=== PATIENT | female | born 1945 | race Caucasian/White ===

== ENCOUNTER 2022-01-31 10:30 | Outpatient (RCR) | payer MEDICARE, SELFPAY ==
[2022-01-24 10:24] VITALS: BP 136/66; PULSE 78; RESP 18; TEMP 35.6; BMI 45.2
--- NOTE | 2022-01-24 13:02 | PCM.WC.HP ---
History of Present Illness Date of Service: 01/24/22 Chief Complaint: Left lower leg cellulitis and staph infection History of Wound: 77-year-old white female grossly obese was working in her yard over the summer and developed she thought poison andree that never went away. Actually its been infection and cellulitis. Has been on antibiotic therapy x2 and is currently on Bactrim from her family doctor through cultures. She has a crusty yellow wet looking cellulitis on the left lower leg almost circumferential. Bilateral lower legs are extremely edematous. Patient does not wear compression stockings. Patient denies fever chills nausea vomiting or diarrhea [facility] Home Medications amlodipine 10 mg tablet 10 mg PO DAILY 01/24/22 [History Last Taken Unknown] ascorbic acid (vitamin C) 25 mg tablet mg PO 01/24/22 [History Last Taken Unknown] atorvastatin 40 mg tablet 40 mg PO QHS 01/24/22 [History Last Taken Unknown] cholecalciferol (vitamin D3) 10 mcg (400 unit) tablet (Vitamin D3) 10 mcg PO DAILY 01/24/22 [History Last Taken Unknown] isosorbide mononitrate 60 mg tablet,extended release 24 hr 60 mg PO DAILY 01/24/22 [History Last Taken Unknown] latanoprostene bunod 0.024 % eye drops (Vyzulta) drp 01/24/22 [History Last Taken Unknown] losartan 100 mg-hydrochlorothiazide 25 mg tablet 1 tab PO DAILY 01/24/22 [History Last Taken Unknown] metoprolol succinate 100 mg capsule sprinkle, ext. release 24 hr 100 mg PO DAILY 01/24/22 [History Last Taken Unknown] phenytoin 100 mg/4 mL oral syringe (FOR ORAL USE ONLY) 100 mg PO TID 01/24/22 [History Last Taken Unknown] potassium chloride 20 mEq tablet,extended release(part/cryst) 20 meq PO BID 01/24/22 [History Last Taken Unknown] Allergy/AdvReac Type Severity Reaction Status Date / Time lincomycin Allergy Unknown Verified 03/14/16 08:48 lisinopril Allergy Unknown Verified 03/14/16 08:48 vancomycin Allergy Unknown Verified 03/14/16 08:48 ROS Constitutional Constitutional: Reports systems reviewed and no addt'l complaints, except as documented Eyes Eyes: Reports systems reviewed and no addt'l complaints, except as documented ENT HEENT: Reports systems reviewed and no addt'l complaints, except as documented Cardiovascular Cardiovascular: Reports systems reviewed and no addt'l complaints, except as documented Respiratory/Chest Respiratory/Chest: Reports systems reviewed and no addt'l complaints, except as documented Gastrointestinal Gastrointestinal: Reports systems reviewed and no addt'l complaints, except as documented Musculoskeletal Musculoskeletal: Reports systems reviewed and no addt'l complaints, except as documented Integumentary Integumentary: Reports rash, skin pain, skin ulcer, skin swelling and wounds Neurologic Neurologic: Reports systems reviewed and no addt'l complaints, except as documented Psychiatric Psychiatric: Reports systems reviewed and no addt'l complaints, except as documented Endocrine Endocrinology: Reports systems reviewed and no addt'l complaints, except as documented Hematologic/Lymphatic Hematologic/Lymphatic: Reports systems reviewed and no addt'l complaints, except as documented Allergic/Immunologic Allergic/Immunologic: Reports systems reviewed and no addt'l complaints, except as documented Vital Signs Vital Signs Vital Signs: 01/24/22 10:24 Temperature 96.0 F L Temperature Source Temporal Pulse Rate 78 Respiratory Rate 18 Blood Pressure 136/66 H Blood Pressure Mean 89 Blood Pressure Source Monitor Blood Pressure Position Semi-Fowlers Blood Pressure Location Left Arm Weight Weight: 272 lb Body Mass Index (BMI) 45.2 Physical Exam Const oriented x3 General Appearance: cooperative Exam Limitations: no limitations Resp normal respiratory effort Effort and Inspection: able to speak in complete sentences Auscultation: clear to auscultation bilaterally Cardio regular rate and regular rhythm Palpation: normal PMI Rate: regular rate Rhythm: regular rhythm external exam normal Extremity normal to inspection General Extremity: normal exam except as noted Skin no rashes or lesions noted General Skin Exam: venous stasis, dermatitis and other Cellulitis with staph aureus infection or scalded skin syndrome Neuro oriented x3 Psych Appearance: grossly normal Speech: normal speech Thought Content: normal thought content Judgement: judgement good Debridement Note Debridement Note Wound debrided: Left lower leg staph infection and cellulitis Type of Debridement: Excisional debridement Anesthesia Used: 5% Lidocaine Gel Depth: Down to and including healthy tissue Percentage of wound debrided: 100 Instrument Used: 7mm curette Tissue Removed: Slough and fibrin Severity: Limited To Skin Breakdown Amount of bleeding with debridement: Mild Bleeding Controlled with: Compression and gauze Patient tolerated procedure: Patient tolerated procedure well Post-Debridement Measurements and Additional Note: Post-Debridement Measurements/Treatment - Nurse 1 - General Ulcer Assessment Start: 01/24/22 09:19 Freq: Status: Active Protocol: DAVY Activity Type Activity Date Activity User E-sign Co-sign Detail Recorded Client Recorded Date Recorded By Document 01/24/22 10:24 INGA [id number] 01/24/22 10:41 JF Edit Result 01/24/22 10:24 JF (1) [id number] 01/24/22 10:49 JF (1) Right - Posterior Tibial Palpable => Yes - Posterior Tibial Doppler => Multiphasic - Dorsalis Pedis Palpable => Yes - Dorsalis Pedis Doppler => Multiphasic Left - Posterior Tibial Palpable => Yes - Posterior Tibial Doppler => Multiphasic - Dorsalis Pedis Palpable => Yes - Dorsalis Pedis Doppler => Multiphasic 01/24/22 10:24 - Today's Visit Information Type of service Initial Visit Arrival Mode Ambulatory, Walker Patient Identification Verified (Name & Yes ) Patient Requires Transmission-Based No Precautions Height and Weight Height 5 ft 5 in Weight 272 lb Weight in Pounds 272.0 lbs Body Mass Index (BMI) 45.2 BMI Classification Obese BSA - Cristian 2.25 Vital Signs Temperature (97.8 F-99.1 F) 96.0 F L Temperature Source Temporal Pulse Rate (60-100) 78 Pulse Location Monitor Respiratory Rate (12-18) 18 Respiratory rate source Observation Blood Pressure (90/60-120/80) 136/66 H Blood Pressure Mean 89 Source Monitor Position Semi-Fowlers Blood Pressure Location Left Arm History Since Last Visit- (Skip if this is Patient's initial visit) Left Footwear Regular Shoe Right Footwear Regular Shoe Pain Scale: 0-10 Numeric Is Patient Pain Free? Yes Lower Extremity Assessment/ Foot Assessment/ Toe Nail Assessment Right -Posterior Tibial Palpable Yes -Posterior Tibial Doppler Multiphasic -Dorsalis Pedis Palpable Yes -Dorsalis Pedis Doppler Multiphasic Left -Posterior Tibial Palpable Yes -Posterior Tibial Doppler Multiphasic -Dorsalis Pedis Palpable Yes -Dorsalis Pedis Doppler Multiphasic Teaching Assessment Preferences Verbal,Written, Demonstration Barriers to Learning None Readiness To Learn Good Willingness to Engage in Self Management Med Activies Readiness to Engage in Self Management Med Activities Anxiety Level Calm Cooperation Cooperative Perception Coherent Interest in Health Problem Asks Questions Education Importance Acknowledges Need Does Patient Smoke tobacco or other No substances Is Patient Diabetic No Functional Assessment Recent Decline in Ability to Perform Ambulation Culture/Latter-Day/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 to contact place of anglican No Teaching: Wound Center [facility] Orientation/ Contacting Physician -Person Taught Patient -Teaching Method Discussion, Demonstration -Response to teaching Return demonstration, Reinforcement needed - Nurse 1 - General Ulcer Measurement Start: 01/24/22 09:19 Freq: Status: Active Protocol: Activity Type Activity Date Activity User E-sign Co-sign Detail Recorded Client Recorded Date Recorded By Document 01/24/22 10:24 [id number] 01/24/22 10:41 01/24/22 10:24 Wound Center Nurse 1 Lower Limb Edema Present Yes Right Calf (cm) 50.6 Right Ankle (cm) 28.5 Left Calf (cm) 48.7 Left Ankle (cm) 32.5 - Nurse 2 - General Ulcer CM Notes Start: 01/24/22 09:19 Freq: Status: Active Protocol: Activity Type Activity Date Activity User E-sign Co-sign Detail Recorded Client Recorded Date Recorded By Document 01/24/22 11:00 [id number] 01/24/22 11:06 01/24/22 11:00 Wound Center Nurse 2 #1 left LE -Time 11:01 -Correct Patient Yes -Correct Side, Site, Position Yes -Correct Procedure Yes -Procedure Performed Yes -Type of Procedure Incision & Drainage -Clinical Debridement Subcutaneous -Tissue Removed Subcutaneous -Post Debridement (cm) - Length 19.0 -Post Debridement (cm) - Width 46.0 -Post Debridement (cm) - Depth 0.1 -Total Square (Post) (cm) 874.00 -Area of Debridement (cm) - Length 19.0 -Area of Debridement (cm) - Width 46.0 -Total Square (Area) (cm) 874.00 -Tunneling No -Undermining/Tunneling No -Circular Undermining No -Wound/Ulcer Outcome Not Healed -Ulcer Cleansing Rinsed/ Irrigated with Saline -Foul Odor after Cleansing No -Bioengineered Tissue No -Bleeding Controlled with Pressure -Treatment Response Procedure Tolerated Well -Offloading No -Debridement - Subq, 1st 20sq cm Yes Pain Scale: 0-10 Numeric Is Patient Pain Free? Yes - Nurse 3 - General Ulcer D/C NN Start: 01/24/22 09:19 Freq: Status: Active Protocol: Activity Type Activity Date Activity User E-sign Co-sign Detail Recorded Client Recorded Date Recorded By Document 01/24/22 11:22 [facility] [id number] 01/24/22 11:23 [facility] 01/24/22 11:22 Wound Care Nurse 3 #1 left LE -Ulcer Cleansing Soap and Water -Foul Odor after Cleansing No -Primary Dressing Applied NonAdherent Contact Layer, Optilok 8x12 -Other Dressing xeroform, -Primary Dressing Covered/Secured with Secured with Tape -Other Covering kerlix -Optilok 8x12 4 Left -Tubular Bandage Double Layer -Size of Tubigrip Used Size F -Size F ($) 2 -Other sent extra Treatment Response Procedure Tolerated Well Pain Scale: 0-10 Numeric Is Patient Pain Free? 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
[2022-01-31 10:47] VITALS: BP 136/77; PULSE 69; RESP 18; TEMP 35.7; BMI 45.2
--- NOTE | 2022-01-31 12:11 | PN.PCM_ITS ---
History of Present Illness Date of Service: 01/31/22 Chief Complaint: Left lower leg cellulitis and staph infection History of Wound: 77-year-old white female grossly obese was working in her yard over the summer and developed she thought poison andree that never went away. Actually its been infection and cellulitis. Has been on antibiotic therapy x2 and is currently on Bactrim from her family doctor through cultures. She has a crusty yellow wet looking cellulitis on the left lower leg almost circu mferential. Bilateral lower legs are extremely edematous. Patient does not wear compression stockings. Patient denies fever chills nausea vomiting or diarrhea Progress of Wound: Patient states has 1 more day of antibiotic therapy and wonders if she needs another round. Cultures will be obtained today to see if there is any change. We are seeing's changes in the skin and it is healing the area of concern is smaller. More painful in the area just above her heel. Dried yellow flaky skin debrided off. No bleeding noted no sign of any more infection noted Subjective Subjective Patient seems to be satisfied so far with care she feels its improved a lot Objective Data Objective Data As stated above the area is still large but is getting smaller and less erythematous is losing that shininess for Pseudomonas Vital Signs: Vital Signs Temp Pulse Resp BP 96.3 F L 69 18 136/77 H 01/31/22 10:47 01/31/22 10:47 01/31/22 10:47 01/31/22 10:47 Weight: 272 lb Body Mass Index (BMI) 45.2 Lab / Micro Data Attestation: I reviewed the patient's lab results. Physical Exam Const oriented x3 General Appearance: cooperative Exam Limitations: no limitations Resp normal respiratory effort Effort and Inspection: able to speak in complete sentences Auscultation: clear to auscultation bilaterally Cardio regular rate and regular rhythm Palpation: normal PMI Rate: regular rate Rhythm: regular rhythm external exam normal Extremity normal to inspection General Extremity: normal exam except as noted Skin no rashes or lesions noted General Skin Exam: venous stasis, dermatitis and other Cellulitis with staph aureus infection or scalded skin syndrome Neuro oriented x3 Psych Appearance: grossly normal Speech: normal speech Thought Content: normal thought content Judgement: judgement good Debridement Note Debridement Note Wound debrided: Cluster left lower leg cellulitis that turned to staph infection Laterality: Left Type of Debridement: Excisional debridement Anesthesia Used: 5% Lidocaine Gel Depth: Down to and including healthy tissue Percentage of wound debrided: 100 Instrument Used: 7mm curette Tissue Removed: Devitalized tissue and fibrin Severity: Limited To Skin Breakdown Amount of bleeding with debridement: Mild Bleeding Controlled with: Compression and gauze Patient tolerated procedure: Patient tolerated procedure well Post-Debridement Measurements and Additional Note: Post-Debridement Measurements/Treatment - Nurse 1 - General Ulcer Assessment Start: 01/24/22 09:19 Freq: Status: Active Protocol: DAVY Activity Type Activity Date Activity User E-sign Co-sign Detail Recorded Client Recorded Date Recorded By Document 01/24/22 10:24 [id number] 01/24/22 10:41 Edit Result 01/24/22 10:24 JF (1) [id number] 01/24/22 10:49 JF Document 01/31/22 10:47 RB [id number] 01/31/22 10:54 RB (1) Right - Posterior Tibial Palpable => Yes - Posterior Tibial Doppler => Multiphasic - Dorsalis Pedis Palpable => Yes - Dorsalis Pedis Doppler => Multiphasic Left - Posterior Tibial Palpable => Yes - Posterior Tibial Doppler => Multiphasic - Dorsalis Pedis Palpable => Yes - Dorsalis Pedis Doppler => Multiphasic 01/24/22 01/31/22 10:24 10:47 - Today's Visit Information Type of service Initial Visit Follow-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 ) Arrival Mode Ambulatory, Wheelchair Walker Transfer Assistance Manual Patient Identification Verified (Name & Yes Yes ) Patient Requires Transmission-Based No No Precautions Height and Weight Height 5 ft 5 in Weight 272 lb Weight in Pounds 272.0 lbs Body Mass Index (BMI) 45.2 45.2 BMI Classification Obese Obese BSA - Cristian 2.25 Vital Signs Temperature (97.8 F-99.1 F) 96.0 F L 96.3 F L Temperature Source Temporal Temporal Pulse Rate (60-100) 78 69 Pulse Location Monitor Monitor Respiratory Rate (12-18) 18 18 Respiratory rate source Observation Observation Blood Pressure (90/60-120/80) 136/66 H 136/77 H Blood Pressure Mean (mm Hg) 89 96 Source Monitor Monitor Position Semi-Fowlers Semi-Fowlers Blood Pressure Location Left Arm Left Arm History Since Last Visit- (Skip if this is Patient's initial visit) Have you changed medications since your No last visit? Any new allergies or adverse reactions No Had a fall/change in ADL's that may No increase risk of falls Signs or symptoms of abuse and/or No neglect since last visit Have you been in the hospital since your No last visit? Has dressing in place as prescribed Yes Has compression in place as prescribed Yes Has offloadiing in place as prescribed No Experienced any changes in pain level or No management Left Footwear Regular Shoe Regular Shoe Right Footwear Regular Shoe Regular Shoe Pain Scale: 0-10 Numeric Is Patient Pain Free? Yes Yes Lower Extremity Assessment/ Foot Assessment/ Toe Nail Assessment Right -Posterior Tibial Palpable Yes -Posterior Tibial Doppler Multiphasic -Dorsalis Pedis Palpable Yes -Dorsalis Pedis Doppler Multiphasic Left -Posterior Tibial Palpable Yes -Posterior Tibial Doppler Multiphasic -Dorsalis Pedis Palpable Yes -Dorsalis Pedis Doppler Multiphasic Teaching Assessment Preferences Verbal,Written, Demonstration Barriers to Learning None Readiness To Learn Good Willingness to Engage in Self Management Med Activies Readiness to Engage in Self Management Med Activities Anxiety Level Calm Cooperation Cooperative Perception Coherent Interest in Health Problem Asks Questions Education Importance Acknowledges Need Does Patient Smoke tobacco or other No substances Is Patient Diabetic No Functional Assessment Recent Decline in Ability to Perform Ambulation Culture/Latter-Day/Medical Billing Clerk Cultural/Latter-Day Needs that may affect No Treatment Plan Would you allow our hospital police patrol lieutenant to No meet you for the purpose of spiritual/ emotional support? Medical Billing Clerk to contact place of catholic No Teaching: Wound Center [facility] Orientation/ Contacting Physician -Person Taught Patient -Teaching Method Discussion, Demonstration -Response to teaching Return demonstration, Reinforcement needed - Nurse 1 - General Ulcer Measurement Start: 01/24/22 09:19 Freq: Status: Active Protocol: Activity Type Activity Date Activity User E-sign Co-sign Detail Recorded Client Recorded Date Recorded By Document 01/24/22 10:24 INGA [id number] 01/24/22 10:41 JF Document 01/31/22 10:47 RB [id number] 01/31/22 10:54 RB 01/24/22 01/31/22 10:24 10:47 Wound Center Nurse 1 #1 left LE -Combined with other wound No -Current Size (cm) - Length 0.1 -Current Size (cm) - Width 0.1 -Current Size (cm) - Depth 0.1 -Total Square Cm 0.01 -Date of Last Picture (Recall this 01/31/22 field) -Photo Taken Yes -Tunneling No -Undermining/Tunneling No -Circular Undermining No -Change in Wound Grade/Stage No -Exudate Amt Medium -Exudate Type Serosanguineous -Wound Margin Distinct, Outline Attached -Granulation Amt None Present (0 %) -Granulation Quality N/A -Slough/Fibrin Yes -Necrosis Amt Small (1-33%) -Necrotic Tissue Type Adherent Slough -Structure Exposed N/A -Texture (Jessica-wound Skin Appearance) Assessed, Excoriation -Moisture (Jessica-wound Skin Appearance) Assessed, Maceration -Color (Jessica-wound Skin Appearance) No Abnormality, Assessed -Temperature (Jessica-wound Skin No Abnormality Appearance) (Pt Warm) -Tenderness on Palpation (Jessica-wound No Skin Appearance) -Ulcer Cleansing Soap and Water -Foul Odor after Cleansing No -Anesthetic Used 5% Lidocaine Gel Lower Limb Edema Present Yes Right Calf (cm) 50.6 Right Ankle (cm) 28.5 Left Calf (cm) 48.7 49.5 Left Ankle (cm) 32.5 32.6 WC - Nurse 2 - General Ulcer CM Notes Start: 01/24/22 09:19 Freq: Status: Active Protocol: Activity Type Activity Date Activity User E-sign Co-sign Detail Recorded Client Recorded Date Recorded By Document 01/24/22 11:00 MW [id number] 01/24/22 11:06 MW Edit Result 01/24/22 11:00 MW (1) [id number] 01/26/22 06:58 PL Document 01/31/22 11:05 MW [id number] 01/31/22 11:14 MW (1) #1 left LE - Debridement, SubQ, ea addt'l 20sq cm => 43 or part thereof 01/24/22 01/31/22 11:00 11:05 Wound Center Nurse 2 #1 left LE -Time 11:01 11:10 -Correct Patient Yes Yes -Correct Side, Site, Position Yes Yes -Correct Procedure Yes Yes -Procedure Performed Yes Yes -Type of Procedure Incision & Debridement Drainage -Clinical Debridement Subcutaneous Subcutaneous -Tissue Removed Subcutaneous Subcutaneous -Post Debridement (cm) - Length 19.0 6.0 -Post Debridement (cm) - Width 46.0 13.0 -Post Debridement (cm) - Depth 0.1 0.1 -Total Square (Post) (cm) 874.00 78.00 -Area of Debridement (cm) - Length 19.0 6.0 -Area of Debridement (cm) - Width 46.0 13.0 -Total Square (Area) (cm) 874.00 78.00 -Tunneling No No -Undermining/Tunneling No No -Circular Undermining No No -Wound/Ulcer Outcome Not Healed Not Healed -Ulcer Cleansing Rinsed/ Rinsed/ Irrigated with Irrigated with Saline Saline -Foul Odor after Cleansing No No -Bioengineered Tissue No No -Bleeding Controlled with Pressure Pressure -Treatment Response Procedure Procedure Tolerated Well Tolerated Well -Offloading No No -Debridement - Subq, 1st 20sq cm Yes Yes -Debridement, SubQ, ea addt'l 20sq cm 43 3 or part thereof Pain Scale: 0-10 Numeric Is Patient Pain Free? Yes Yes WC - Nurse 3 - General Ulcer D/C NN Start: 01/24/22 09:19 Freq: Status: Active Protocol: Activity Type Activity Date Activity User E-sign Co-sign Detail Recorded Client Recorded Date Recorded By Document 01/24/22 11:22 [facility] [id number] 01/24/22 11:23 [facility] Document 01/31/22 11:35 [facility] [id number] 01/31/22 11:36 [facility] 01/24/22 01/31/22 11:22 11:35 Wound Care Nurse 3 #1 left LE -Ulcer Cleansing Soap and Water Rinsed/ Irrigated with Saline -Foul Odor after Cleansing No No -Primary Dressing Applied NonAdherent NonAdherent Contact Layer, Contact Layer, Optilok 8x12 Optilok 8x12 -Other Dressing xeroform, XEROFORM -Primary Dressing Covered/Secured with Secured with Dry Gauze & Tape Roll Gauze, Secured with Tape -Other Covering kerlix -Optilok 8x12 4 2 Left -Tubular Bandage Double Layer -Size of Tubigrip Used Size F -Size F ($) 2 -Other sent extra APPLIED PTS OWN DOUBLE LAYER TUBI Treatment Response Procedure Procedure Tolerated Well Tolerated Well Pain Scale: 0-10 Numeric Is Patient Pain Free? 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
== END 2022-01-31 23:59 | disposition home or self-care (01) ==
LOC: WC 10:30
PROVIDERS: PCP Family Medicine; Visit Provider Nurse Practitioner
DX: L03.116 Cellulitis of left lower limb (principal); I73.9 Peripheral vascular disease, unspecified; E66.01 Morbid (severe) obesity due to excess calories; Z68.42 Body mass index [BMI] 45.0-49.9, adult; R60.0 Localized edema; M79.673 Pain in unspecified foot; L00 Staphylococcal scalded skin syndrome; I87.8 Other specified disorders of veins; L30.9 Dermatitis, unspecified; J40 Bronchitis, not specified as acute or chronic
CPT/HCPCS: 11042; 11045; 87070; 87075; 87077; 87186; 87205; 99203; G0463

== ENCOUNTER 2022-02-21 11:00 | Outpatient (RCR) | payer MEDICARE, SELFPAY ==
[2022-02-01 00:43] VITALS: BP 136/77; PULSE 69; RESP 18; TEMP 35.7; BMI 45.2
[2022-02-07 11:08] VITALS: BP 148/80; PULSE 73; RESP 18; TEMP 35.7; BMI 45.2
--- NOTE | 2022-02-07 12:17 | PCM.WC.PN ---
History of Present Illness Date of Service: 02/07/22 Chief Complaint: Left lower leg cellulitis and staph infection History of Wound: 77-year-old white female grossly obese was working in her yard over the summer and developed she thought poison andree that never went away. Actually its been infection and cellulitis. Has been on antibiotic therapy x2 and is currently on Bactrim from her family doctor through cultures. She has a crusty yellow wet looking cellulitis on the left lower leg almost circumferential. Bilateral lower legs are extremely edematous. Patient does not wear compression stockings. Patient denies fever chills nausea vomiting or diarrhea Progress of Wound: Cultures came back rare and was not treated. Leg continues to improve dried flaky skin coming off. Ulcerating treatment well Xeroform dressing is working well. Patient is doing better and feels better Subjective Subjective Family is good with the treatment Objective Data Objective Data Leg looks better measurements are smaller tolerating treatment well no odor cultures came back rare Vital Signs: Vital Signs Temp Pulse Resp BP O2 Del Method 96.3 F L 73 18 148/80 H Room Air 02/07/22 11:08 02/07/22 11:08 02/07/22 11:08 02/07/22 11:08 02/07/22 11:08 Oxygen Delivery Method Room Air Weight: 272 lb Body Mass Index (BMI) 45.2 Physical Exam Const oriented x3 General Appearance: cooperative Exam Limitations: no limitations Resp normal respiratory effort Effort and Inspection: able to speak in complete sentences Auscultation: clear to auscultation bilaterally Cardio regular rate and regular rhythm Palpation: normal PMI Rate: regular rate Rhythm: regular rhythm external exam normal Extremity normal to inspection General Extremity: normal exam except as noted Skin no rashes or lesions noted General Skin Exam: venous stasis, dermatitis and other Cellulitis with staph aureus infection or scalded skin syndrome Neuro oriented x3 Psych Appearance: grossly normal Speech: normal speech Thought Content: normal thought content Judgement: judgement good Debridement Note Debridement Note Wound debrided: 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 Type of Debridement: Excisional debridement Anesthesia Used: 5% Lidocaine Gel Depth: Down to and including healthy tissue Percentage of wound debrided: 100 Instrument Used: 7mm curette Tissue Removed: Devitalized tissue fibrin Severity: Limited To Skin Breakdown Amount of bleeding with debridement: None Bleeding Controlled with: Compression and gauze Patient tolerated procedure: Patient tolerated procedure well Post-Debridement Measurements and Additional Note: Post-Debridement Measurements/Treatment - Nurse 1 - General Ulcer Assessment Start: 02/07/22 11:08 Freq: Status: Active Protocol: DAVY Activity Type Activity Date Activity User E-sign Co-sign Detail Recorded Client Recorded Date Recorded By Document 02/07/22 11:08 [facility] [id number] 02/07/22 11:16 [facility] 02/07/22 11:08 WC - Today's Visit Information Type of service Follow-up Visit (Physician/[place]IP SUPERVISOR ) Arrival Mode Other Arrival Mode (Other) ELECTRIC SCOOTER Transfer Assistance Other Transfer Assist (Other) 1 Accompanied by DAUGHTER Patient Identification Verified (Name & Yes ) Patient Requires Transmission-Based No Precautions Height and Weight Body Mass Index (BMI) 45.2 BMI Classification Obese Vital Signs Temperature (97.8 F-99.1 F) 96.3 F L Temperature Source Temporal Pulse Rate (60-100) 73 Pulse Location Monitor Respiratory Rate (12-18) 18 Respiratory rate source Observation Oxygen Delivery Method Room Air Blood Pressure (90/60-120/80) 148/80 H Blood Pressure Mean (mm Hg) 102 Source Monitor Position Supine Blood Pressure Location Left Forearm History Since Last Visit- (Skip if this is Patient's initial visit) Have you changed medications since your No last visit? Had a fall/change in ADL's that may No increase risk of falls Signs or symptoms of abuse and/or No neglect since last visit Have you been in the hospital since your No last visit? Has dressing in place as prescribed Yes Has compression in place as prescribed N/A Has offloadiing in place as prescribed N/A Experienced any changes in pain level or No management Left Footwear Regular Shoe Right Footwear Regular Shoe Pain Scale: 0-10 Numeric Is Patient Pain Free? Yes - Nurse 1 - General Ulcer Measurement Start: 02/07/22 11:08 Freq: Status: Active Protocol: Activity Type Activity Date Activity User E-sign Co-sign Detail Recorded Client Recorded Date Recorded By Document 02/07/22 11:08 [facility] [id number] 02/07/22 11:16 [facility] 02/07/22 11:08 Wound Center Nurse 1 #1 left LE -Combined with other wound No -Current Size (cm) - Length 0.1 -Current Size (cm) - Width 0.1 -Current Size (cm) - Depth 0.1 -Total Square Cm 0.01 -Date of Last Picture (Recall this 02/07/22 field) -Photo Taken Yes -Epithelialization Medium 34-66% -Tunneling No -Undermining/Tunneling No -Circular Undermining No -Exudate Amt Small -Exudate Type Serous -Wound Margin Flat & Intact -Granulation Amt Large (67-100%) -Granulation Quality [place] -Slough/Fibrin Yes -Necrosis Amt Small (1-33%) -Necrotic Tissue Type Adherent Slough -Texture (Jessica-wound Skin Appearance) Assessed, Scarring -Moisture (Jessica-wound Skin Appearance) Assessed -Color (Jessica-wound Skin Appearance) Assessed, Erythema -Temperature (Jessica-wound Skin No Abnormality Appearance) (Pt Warm) -Tenderness on Palpation (Jessica-wound No Skin Appearance) -Ulcer Cleansing Soap and Water -Foul Odor after Cleansing No -Anesthetic Used 4% Lidocaine Solution Lower Limb Edema Present Yes Left Calf (cm) 50 Left Ankle (cm) 32 WC - Nurse 2 - General Ulcer CM Notes Start: 02/07/22 11:08 Freq: Status: Active Protocol: Activity Type Activity Date Activity User E-sign Co-sign Detail Recorded Client Recorded Date Recorded By Document 02/07/22 11:32 MW [id number] 02/07/22 11:37 MW 02/07/22 11:32 Wound Center Nurse 2 #1 left LE -Time 11:34 -Correct Patient Yes -Correct Side, Site, Position Yes -Correct Procedure Yes -Procedure Performed Yes -Type of Procedure Debridement -Clinical Debridement Subcutaneous -Tissue Removed Subcutaneous -Post Debridement (cm) - Length 4.5 -Post Debridement (cm) - Width 13.0 -Post Debridement (cm) - Depth 0.1 -Total Square (Post) (cm) 58.50 -Area of Debridement (cm) - Length 4.5 -Area of Debridement (cm) - Width 13.0 -Total Square (Area) (cm) 58.50 -Tunneling No -Undermining/Tunneling No -Circular Undermining No -Wound/Ulcer Outcome Not Healed -Ulcer Cleansing Rinsed/ Irrigated with Saline -Foul Odor after Cleansing No -Bioengineered Tissue No -Bleeding Controlled with Pressure -Treatment Response Procedure Tolerated Well -Offloading No -Debridement - Subq, 1st 20sq cm Yes -Debridement, SubQ, ea addt'l 20sq cm 2 or part thereof Pain Scale: 0-10 Numeric Is Patient Pain Free? Yes - Nurse 3 - General Ulcer D/C NN Start: 02/07/22 11:08 Freq: Status: Active Protocol: Activity Type Activity Date Activity User E-sign Co-sign Detail Recorded Client Recorded Date Recorded By Document 02/07/22 11:43 BMF [id number] 02/07/22 11:44 BMF Edit Result 02/07/22 11:43 BMF (1) [id number] 02/07/22 11:44 BMF (1) Facility Type => Home Health 02/07/22 11:43 Wound Care Nurse 3 #1 left LE -Ulcer Cleansing Rinsed/ Irrigated with Saline -Foul Odor after Cleansing No -Primary Dressing Applied NonAdherent Contact Layer, Optilok 6.5x10 -Other Dressing XEROFORM -Primary Dressing Covered/Secured with Dry Gauze & Roll Gauze, Secured with Tape -Other Covering DRSG PER [place] SIFTER OPERATOR -Optilok 6.5x10 2 Left -Tubular Bandage Double Layer -Size of Tubigrip Used Size E -Size E ($) 1 Treatment Response Procedure Tolerated Well Pain Scale: 0-10 Numeric Is Patient Pain Free? 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
[2022-02-14 10:47] VITALS: BP 152/85; PULSE 72; RESP 18; TEMP 35.9; BMI 45.2
--- NOTE | 2022-02-14 12:33 | PN.PCM_ITS ---
History of Present Illness Date of Service: 02/14/22 Chief Complaint: Left lower leg cellulitis and staph infection History of Wound: 77-year-old white female grossly obese was working in her yard over the summer and developed she thought poison andree that never went away. Actually its been infection and cellulitis. Has been on antibiotic therapy x2 and is currently on Bactrim from her family doctor through cultures. She has a crusty yellow wet looking cellulitis on the left lower leg almost circu mferential. Bilateral lower legs are extremely edematous. Patient does not wear compression stockings. Patient denies fever chills nausea vomiting or diarrhea Progress of Wound: Leg continues to improve dried flaky skin coming off.the treatment of l Xeroform dressing is working well. Patient is doing better and feels better Subjective Subjective Family is happy with outcome Objective Data Objective Data No sign of infection measure smaller every week we will continue using compression and Xeroform dressings Patient is receiving home health 2 days a week to change dressings for her Vital Signs: Vital Signs Temp Pulse Resp BP O2 Del Method 96.7 F L 72 18 152/85 H Room Air 02/14/22 10:47 02/14/22 10:47 02/14/22 10:47 02/14/22 10:47 02/14/22 10:47 Oxygen Delivery Method Room Air Weight: 272 lb Body Mass Index (BMI) 45.2 Physical Exam Const oriented x3 General Appearance: cooperative Exam Limitations: no limitations Resp normal respiratory effort Effort and Inspection: able to speak in complete sentences Auscultation: clear to auscultation bilaterally Cardio regular rate and regular rhythm Palpation: normal PMI Rate: regular rate Rhythm: regular rhythm external exam normal Extremity normal to inspection General Extremity: normal exam except as noted Skin no rashes or lesions noted General Skin Exam: venous stasis, dermatitis and other Cellulitis with staph aureus infection or scalded skin syndrome Neuro oriented x3 Psych Appearance: grossly normal Speech: normal speech Thought Content: normal thought content Judgement: judgement good Debridement Note Debridement Note Wound debrided: Left lower leg cluster Type of Debridement: Selective debridement Anesthesia Used: 5% Lidocaine Gel Depth: Down to and including healthy tissue Percentage of wound debrided: 100 Instrument Used: - (Gauze) Tissue Removed: Devitalized tissue Severity: Limited To Skin Breakdown Amount of bleeding with debridement: None Bleeding Controlled with: Pressure Patient tolerated procedure: Patient tolerated procedure well Post-Debridement Measurements and Additional Note: Post-Debridement Measurements/Treatment - Nurse 1 - General Ulcer Assessment Start: 02/07/22 11:08 Freq: Status: Active Protocol: DAVY Activity Type Activity Date Activity User E-sign Co-sign Detail Recorded Client Recorded Date Recorded By Document 02/07/22 11:08 [facility] [id number] 02/07/22 11:16 [facility] Document 02/14/22 10:47 [facility] [id number] 02/14/22 11:06 BM 02/07/22 02/14/22 11:08 10:47 - Today's Visit Information Type of service Follow-up Visit Follow-up Visit (Physician/SUPERVISOR FISH PROCESSING (Physician/SUPERVISOR FISH PROCESSING ) ) Arrival Mode Other Wheelchair Arrival Mode (Other) ELECTRIC SCOOTER Transfer Assistance Other None Transfer Assist (Other) 1 Accompanied by DAUGHTER daughter Patient Identification Verified (Name & Yes Yes ) Patient Requires Transmission-Based No No Precautions Height and Weight Body Mass Index (BMI) 45.2 45.2 BMI Classification Obese Obese Vital Signs Temperature (97.8 F-99.1 F) 96.3 F L 96.7 F L Temperature Source Temporal Temporal Pulse Rate (60-100) 73 72 Pulse Location Monitor Monitor Respiratory Rate (12-18) 18 18 Respiratory rate source Observation Observation Oxygen Delivery Method Room Air Room Air Blood Pressure (90/60-120/80) 148/80 H 152/85 H Blood Pressure Mean (mm Hg) 102 107 Source Monitor Monitor Position Supine Sitting Blood Pressure Location Left Forearm Right Forearm History Since Last Visit- (Skip if this is Patient's initial visit) Have you changed medications since your No No last visit? Any new allergies or adverse reactions No Had a fall/change in ADL's that may No No increase risk of falls Signs or symptoms of abuse and/or No No neglect since last visit Have you been in the hospital since your No No last visit? Has dressing in place as prescribed Yes Yes Has compression in place as prescribed N/A Yes Has offloadiing in place as prescribed N/A N/A Experienced any changes in pain level or No No management Left Footwear Regular Shoe Regular Shoe Right Footwear Regular Shoe Regular Shoe Pain Scale: 0-10 Numeric Is Patient Pain Free? Yes Yes - Nurse 1 - General Ulcer Measurement Start: 02/07/22 11:08 Freq: Status: Active Protocol: Activity Type Activity Date Activity User E-sign Co-sign Detail Recorded Client Recorded Date Recorded By Document 02/07/22 11:08 [facility] [id number] 02/07/22 11:16 BM Document 02/14/22 10:47 [facility] [id number] 02/14/22 11:06 BMF 02/07/22 02/14/22 11:08 10:47 Wound Center Nurse 1 #1 left LE -Combined with other wound No No -Current Size (cm) - Length 0.1 32.7 -Current Size (cm) - Width 0.1 15.5 -Current Size (cm) - Depth 0.1 0.1 -Total Square Cm 0.01 506.85 -Date of Last Picture (Recall this 02/07/22 02/14/22 field) -Photo Taken Yes Yes -Epithelialization Medium 34-66% None Present -Tunneling No No -Undermining/Tunneling No No -Circular Undermining No No -Exudate Amt Small Medium -Exudate Type Serous Serous -Wound Margin Flat & Intact Distinct, Outline Attached -Granulation Amt Large (67-100%) Large (67-100%) -Granulation Quality [place] -Slough/Fibrin Yes No -Necrosis Amt Small (1-33%) None Present (0 %) -Necrotic Tissue Type Adherent Slough -Texture (Jessica-wound Skin Appearance) Assessed, Assessed, Scarring Scarring -Moisture (Jessica-wound Skin Appearance) Assessed Assessed,Dry/ Scaly -Color (Jessica-wound Skin Appearance) Assessed, Assessed, Erythema Erythema -Temperature (Jessica-wound Skin No Abnormality No Abnormality Appearance) (Pt Warm) (Pt Warm) -Tenderness on Palpation (Jessica-wound No Yes Skin Appearance) -Ulcer Cleansing Soap and Water Soap and Water -Foul Odor after Cleansing No No -Anesthetic Used 4% Lidocaine 4% Lidocaine Solution Solution Lower Limb Edema Present Yes Yes Left Calf (cm) 50 48.2 Left Ankle (cm) 32 29.5 WC - Nurse 2 - General Ulcer CM Notes Start: 02/07/22 11:08 Freq: Status: Active Protocol: Activity Type Activity Date Activity User E-sign Co-sign Detail Recorded Client Recorded Date Recorded By Document 02/07/22 11:32 MW [id number] 02/07/22 11:37 MW Document 02/14/22 11:13 MW [id number] 02/14/22 11:19 MW 02/07/22 02/14/22 11:32 11:13 Wound Center Nurse 2 #1 left LE -Time 11:34 11:13 -Correct Patient Yes Yes -Correct Side, Site, Position Yes Yes -Correct Procedure Yes Yes -Procedure Performed Yes Yes -Type of Procedure Debridement Debridement -Clinical Debridement Subcutaneous Epidermis / Dermis -Tissue Removed Subcutaneous Epidermis -Post Debridement (cm) - Length 4.5 10.0 -Post Debridement (cm) - Width 13.0 31.0 -Post Debridement (cm) - Depth 0.1 0.1 -Total Square (Post) (cm) 58.50 310.00 -Area of Debridement (cm) - Length 4.5 10.0 -Area of Debridement (cm) - Width 13.0 31.0 -Total Square (Area) (cm) 58.50 310.00 -Tunneling No No -Undermining/Tunneling No No -Circular Undermining No No -Wound/Ulcer Outcome Not Healed Not Healed -Ulcer Cleansing Rinsed/ Rinsed/ Irrigated with Irrigated with Saline Saline -Foul Odor after Cleansing No No -Bioengineered Tissue No No -Bleeding Controlled with Pressure Pressure -Treatment Response Procedure Procedure Tolerated Well Tolerated Well -Offloading No No -Debridement - Open, 1st 20sq cm Yes -Debridement, Open, ea addt'l 20sq cm 11 or part thereof -Debridement - Subq, 1st 20sq cm Yes -Debridement, SubQ, ea addt'l 20sq cm 2 or part thereof Pain Scale: 0-10 Numeric Is Patient Pain Free? Yes Yes WC - Nurse 3 - General Ulcer D/C NN Start: 02/07/22 11:08 Freq: Status: Active Protocol: Activity Type Activity Date Activity User E-sign Co-sign Detail Recorded Client Recorded Date Recorded By Document 02/07/22 11:43 BMF [id number] 02/07/22 11:44 BMF Edit Result 02/07/22 11:43 BMF (1) [id number] 02/07/22 11:44 BMF Document 02/14/22 11:50 [place] [id number] 02/14/22 11:56 AK (1) Facility Type => Home Health 02/07/22 02/14/22 11:43 11:50 Wound Care Nurse 3 #1 left LE -Ulcer Cleansing Rinsed/ Rinsed/ Irrigated with Irrigated with Saline Saline -Foul Odor after Cleansing No No -Negative Pressure Wound Therapy N/A -Primary Dressing Applied NonAdherent NonAdherent Contact Layer, Contact Layer Optilok 6.5x10 -Other Dressing XEROFORM xeroform -Primary Dressing Covered/Secured with Dry Gauze & Dry Gauze & Roll Gauze, Roll Gauze, Secured with Secured with Tape Tape -Other Covering DRSG PER [place] INDUSTRIAL MAINTENANCE TECH -Optilok 6.5x10 2 Left -Lotion applied to leg before No compression wrap -Tubular Bandage Double Layer -Size of Tubigrip Used Size E -Size E ($) 1 -Other xeroform x3 Treatment Response Procedure Tolerated Well Pain Scale: 0-10 Numeric Is Patient Pain Free? 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
[2022-02-21 11:04] VITALS: BP 130/67; PULSE 65; RESP 16; TEMP 35.9; BMI 45.2
--- NOTE | 2022-02-21 11:58 | PCM.WC.PN ---
History of Present Illness Date of Service: 02/21/22 Chief Complaint: Left lower leg cellulitis and staph infection History of Wound: 77-year-old white female grossly obese was working in her yard over the summer and developed she thought poison andree that never went away. Actually its been infection and cellulitis. Has been on antibiotic therapy x2 and is currently on Bactrim from her family doctor through cultures. She has a crusty yellow wet looking cellulitis on the left lower leg almost circumferential. Bilateral lower legs are extremely edematous. Patient does not wear compression stockings. Patient denies fever chills nausea vomiting or diarrhea Progress of Wound: Wound is healed patient is discharged from the wound center. Some areas of redness that they can continue doing dressing changes for the next week or so but patient does not need to return. Subjective Subjective Family and patient are very happy with outcome Objective Data Objective Data As stated above patient will be discharged from the wound center and follow-up as needed Vital Signs: Vital Signs Temp Pulse Resp BP O2 Del Method 96.7 F L 65 16 130/67 H Room Air 02/21/22 11:04 02/21/22 11:04 02/21/22 11:04 02/21/22 11:04 02/21/22 11:04 Oxygen Delivery Method Room Air Weight: 272 lb Body Mass Index (BMI) 45.2 Debridement Note Debridement Note No debridement was completed: No debridement was completed today Post-Debridement Measurements and Additional Note: Post-Debridement Measurements/Treatment - Nurse 1 - General Ulcer Assessment Start: 02/07/22 11:08 Freq: Status: Active Protocol: DAVY Activity Type Activity Date Activity User E-sign Co-sign Detail Recorded Client Recorded Date Recorded By Document 02/07/22 11:08 [facility] [id number] 02/07/22 11:16 BM Document 02/14/22 10:47 [facility] [id number] 02/14/22 11:06 BM Document 02/21/22 11:04 [facility] [id number] 02/21/22 11:14 BMF 02/07/22 02/14/22 02/21/22 11:08 10:47 11:04 - Today's Visit Information Type of service Follow-up Visit Follow-up Visit Follow-up Visit (Physician/DINKEY ENGINE OPERATOR (Physician/DINKEY ENGINE OPERATOR (Physician/DINKEY ENGINE OPERATOR ) ) ) Arrival Mode Other Wheelchair Wheelchair Arrival Mode (Other) ELECTRIC SCOOTER Transfer Assistance Other None Other Transfer Assist (Other) 1 CARON ASSISTS Accompanied by DAUGHTER daughter CARON Patient Identification Verified (Name & Yes Yes Yes ) Patient Requires Transmission-Based No No No Precautions Height and Weight Body Mass Index (BMI) 45.2 45.2 45.2 BMI Classification Obese Obese Obese Vital Signs Temperature (97.8 F-99.1 F) 96.3 F L 96.7 F L 96.7 F L Temperature Source Temporal Temporal Temporal Pulse Rate (60-100) 73 72 65 Pulse Location Monitor Monitor Monitor Respiratory Rate (12-18) 18 18 16 Respiratory rate source Observation Observation Observation Oxygen Delivery Method Room Air Room Air Room Air Blood Pressure (90/60-120/80) 148/80 H 152/85 H 130/67 H Blood Pressure Mean (mm Hg) 102 107 88 Source Monitor Monitor Monitor Position Supine Sitting Sitting Blood Pressure Location Left Forearm Right Forearm Right Forearm History Since Last Visit- (Skip if this is Patient's initial visit) Have you changed medications since your No No No last visit? Any new allergies or adverse reactions No No Had a fall/change in ADL's that may No No No increase risk of falls Signs or symptoms of abuse and/or No No No neglect since last visit Have you been in the hospital since your No No No last visit? Has dressing in place as prescribed Yes Yes Yes Has compression in place as prescribed N/A Yes Yes Has offloadiing in place as prescribed N/A N/A N/A Experienced any changes in pain level or No No No management Left Footwear Regular Shoe Regular Shoe Regular Shoe Right Footwear Regular Shoe Regular Shoe Regular Shoe Pain Scale: 0-10 Numeric Is Patient Pain Free? Yes Yes Yes WC - Nurse 1 - General Ulcer Measurement Start: 02/07/22 11:08 Freq: Status: Active Protocol: Activity Type Activity Date Activity User E-sign Co-sign Detail Recorded Client Recorded Date Recorded By Document 02/07/22 11:08 [facility] [id number] 02/07/22 11:16 [facility] Document 02/14/22 10:47 [facility] [id number] 02/14/22 11:06 BMF Document 02/21/22 11:04 [facility] [id number] 02/21/22 11:14 BM 02/07/22 02/14/22 02/21/22 11:08 10:47 11:04 Wound Center Nurse 1 #1 left LE -Combined with other wound No No No -Current Size (cm) - Length 0.1 32.7 0.1 -Current Size (cm) - Width 0.1 15.5 0.1 -Current Size (cm) - Depth 0.1 0.1 0.1 -Total Square Cm 0.01 506.85 0.01 -Date of Last Picture (Recall this 02/07/22 02/14/22 field) -Photo Taken Yes Yes No -Epithelialization Medium 34-66% None Present -Tunneling No No No -Undermining/Tunneling No No No -Circular Undermining No No No -Change in Wound Grade/Stage No -Exudate Amt Small Medium None Present -Exudate Type Serous Serous -Wound Margin Flat & Intact Distinct, Outline Attached -Granulation Amt Large (67-100%) Large (67-100%) None Present (0 %) -Granulation Quality [place] N/A -Slough/Fibrin Yes No No -Necrosis Amt Small (1-33%) None Present (0 None Present (0 %) %) -Necrotic Tissue Type Adherent Slough -Structure Exposed N/A -Texture (Jessica-wound Skin Appearance) Assessed, Assessed, No Abnormality, Scarring Scarring Assessed -Moisture (Jessica-wound Skin Appearance) Assessed Assessed,Dry/ No Abnormality, Scaly Assessed -Color (Jessica-wound Skin Appearance) Assessed, Assessed, No Abnormality, Erythema Erythema Assessed -Temperature (Jessica-wound Skin No Abnormality No Abnormality No Abnormality Appearance) (Pt Warm) (Pt Warm) (Pt Warm) -Tenderness on Palpation (Jessica-wound No Yes No Skin Appearance) -Ulcer Cleansing Soap and Water Soap and Water Soap and Water -Foul Odor after Cleansing No No No -Anesthetic Used 4% Lidocaine 4% Lidocaine Solution Solution Lower Limb Edema Present Yes Yes No Left Calf (cm) 50 48.2 30.5 Left Ankle (cm) 32 29.5 48.8 WC - Nurse 2 - General Ulcer CM Notes Start: 02/07/22 11:08 Freq: Status: Active Protocol: Activity Type Activity Date Activity User E-sign Co-sign Detail Recorded Client Recorded Date Recorded By Document 02/07/22 11:32 MW [id number] 02/07/22 11:37 MW Document 02/14/22 11:13 MW [id number] 02/14/22 11:19 MW Document 02/21/22 11:19 MW [id number] 02/21/22 11:22 MW 02/07/22 02/14/22 02/21/22 11:32 11:13 11:19 Wound Center Nurse 2 #1 left LE -Time 11:34 11:13 11:21 -Correct Patient Yes Yes Yes -Correct Side, Site, Position Yes Yes Yes -Correct Procedure Yes Yes Yes -Procedure Performed Yes Yes No -Type of Procedure Debridement Debridement -Clinical Debridement Subcutaneous Epidermis / Dermis -Tissue Removed Subcutaneous Epidermis -Post Debridement (cm) - Length 4.5 10.0 0 -Post Debridement (cm) - Width 13.0 31.0 0 -Post Debridement (cm) - Depth 0.1 0.1 0 -Total Square (Post) (cm) 58.50 310.00 0 -Area of Debridement (cm) - Length 4.5 10.0 -Area of Debridement (cm) - Width 13.0 31.0 -Total Square (Area) (cm) 58.50 310.00 -Tunneling No No -Undermining/Tunneling No No -Circular Undermining No No -Wound/Ulcer Outcome Not Healed Not Healed Healed- Epithelialized -Ulcer Cleansing Rinsed/ Rinsed/ Irrigated with Irrigated with Saline Saline -Foul Odor after Cleansing No No -Bioengineered Tissue No No -Bleeding Controlled with Pressure Pressure -Treatment Response Procedure Procedure Tolerated Well Tolerated Well -Offloading No No -Debridement - Open, 1st 20sq cm Yes -Debridement, Open, ea addt'l 20sq cm 11 or part thereof -Debridement - Subq, 1st 20sq cm Yes -Debridement, SubQ, ea addt'l 20sq cm 2 or part thereof Pain Scale: 0-10 Numeric Is Patient Pain Free? Yes Yes Yes WC - Nurse 3 - General Ulcer D/C NN Start: 02/07/22 11:08 Freq: Status: Active Protocol: Activity Type Activity Date Activity User E-sign Co-sign Detail Recorded Client Recorded Date Recorded By Document 02/07/22 11:43 F [id number] 02/07/22 11:44 BMF Edit Result 02/07/22 11:43 BMF (1) [id number] 02/07/22 11:44 BMF Document 02/14/22 11:50 [place] [id number] 02/14/22 11:56 [place] Document 02/21/22 11:37 BMF [id number] 02/21/22 11:38 BMF (1) Facility Type => Home Health 02/07/22 02/14/22 02/21/22 11:43 11:50 11:37 Wound Care Nurse 3 #1 left LE -Ulcer Cleansing Rinsed/ Rinsed/ Irrigated with Irrigated with Saline Saline -Foul Odor after Cleansing No No -Negative Pressure Wound Therapy N/A -Primary Dressing Applied NonAdherent NonAdherent NonAdherent Contact Layer, Contact Layer Contact Layer, Optilok 6.5x10 Optilok 8x12 -Other Dressing XEROFORM xeroform XEROFORM/ ADAPTIC; DRSG PER [place] [employer]FT POWER PLANT ASSEMBLER -Primary Dressing Covered/Secured with Dry Gauze & Dry Gauze & Dry Gauze & Roll Gauze, Roll Gauze, Roll Gauze, Secured with Secured with Secured with Tape Tape Tape -Other Covering DRSG PER [place] [employer]FT [employer]OWER PLANT ASSEMBLER -Optilok 6.5x10 2 -Optilok 8x12 2 Left -Lotion applied to leg before No compression wrap -Tubular Bandage Double Layer Double Layer -Size of Tubigrip Used Size E Size E -Size E ($) 1 1 -Other xeroform x3 Treatment Response Procedure Procedure Tolerated Well Tolerated Well Pain Scale: 0-10 Numeric Is Patient Pain Free? 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
== END 2022-02-21 15:49 | disposition home or self-care (01) ==
LOC: WC 11:00
PROVIDERS: PCP Family Medicine; Visit Provider Nurse Practitioner
DX: L03.116 Cellulitis of left lower limb (principal); E66.01 Morbid (severe) obesity due to excess calories; Z68.42 Body mass index [BMI] 45.0-49.9, adult; R60.0 Localized edema; L00 Staphylococcal scalded skin syndrome; J40 Bronchitis, not specified as acute or chronic; L30.9 Dermatitis, unspecified; I87.2 Venous insufficiency (chronic) (peripheral)
CPT/HCPCS: 11042; 11045; 97597; 97598; 99213; G0463

== ENCOUNTER 2022-04-18 10:45 | Outpatient (RCR) | payer MEDICARE, SELFPAY ==
[2022-04-04 10:53] VITALS: BP 153/76; PULSE 68; RESP 16; TEMP 35.8
--- NOTE | 2022-04-04 12:35 | PN.PCM_ITS ---
History of Present Illness Date of Service: 04/04/22 Chief Complaint: Left lower leg cellulitis has restarted History of Wound: 77-year-old white female grossly obese was working in her yard over the summer and developed she thought poison andree that never went away. Actually its been infection and cellulitis. Has been on antibiotic therapy x2 and is currently on Bactrim from her family doctor through cultures. She has a crusty yellow wet looking cellulitis on the left lower leg almost circumferen tial. Bilateral lower legs are extremely edematous. Patient does not wear compression stockings. Patient denies fever chills nausea vomiting or diarrhea Progress of Wound: Today the left lower leg is crusted again and very erythematous circumferential on the left lower leg. We will get arterial brachial studies this time and check she has an old scar going up the leg from venous stripping for open heart about 10 years ago. Patient is still only wearing double layer Tubigrip's and no other compression. Subjective Subjective They would like to know if they should start restart taking the Bactrim that their other doctor gave them I suggested not Objective Data Objective Data Nothing open yet just some erythema of the skin with yellow crusting over top circumferential from the lower ankle to mid calf. No break in skin integrity. Vital Signs: Vital Signs Temp Pulse Resp BP O2 Del Method 96.4 F L 68 16 153/76 H Room Air 04/04/22 10:53 04/04/22 10:53 04/04/22 10:53 04/04/22 10:53 04/04/22 10:53 Oxygen Delivery Method Room Air Lab / Micro Data Attestation: I reviewed the patient's lab results. Physical Exam Const oriented x3 General Appearance: cooperative Exam Limitations: no limitations Resp normal respiratory effort Effort and Inspection: able to speak in complete sentences Auscultation: clear to auscultation bilaterally Cardio regular rate and regular rhythm Palpation: normal PMI Rate: regular rate Rhythm: regular rhythm external exam normal Extremity normal to inspection General Extremity: normal exam except as noted Skin no rashes or lesions noted General Skin Exam: venous stasis, dermatitis and other Neuro oriented x3 Psych Appearance: grossly normal Speech: normal speech Thought Content: normal thought content Judgement: judgement good Debridement Note Debridement Note Wound debrided: Left lower leg cellulitis Type of Debridement: Selective debridement Anesthesia Used: 5% Lidocaine Gel Depth: Down to and including healthy tissue Percentage of wound debrided: - (Gauze) Instrument Used: - (Gauze) Tissue Removed: Devitalized tissue Bleeding Controlled with: Compression and gauze Patient tolerated procedure: Patient tolerated procedure well Post-Debridement Measurements and Additional Note: Post-Debridement Measurements/Treatment WC - Nurse 1 - General Ulcer Assessment Start: 04/04/22 10:52 Freq: Status: Active Protocol: DAVY Activity Type Activity Date Activity User E-sign Co-sign Detail Recorded Client Recorded Date Recorded By Document 04/04/22 10:53 AR [id number] 04/04/22 11:07 AR 04/04/22 10:53 WC - Today's Visit Information Type of service Initial Visit Arrival Mode Wheelchair Transfer Assistance Other Transfer Assist (Other) 2 Accompanied by caron Patient Identification Verified (Name & Yes ) Vital Signs Temperature (97.8 F-99.1 F) 96.4 F L Temperature Source Temporal Pulse Rate (60-100) 68 Pulse Location Monitor Respiratory Rate (12-18) 16 Respiratory rate source Observation Oxygen Delivery Method Room Air Blood Pressure (90/60-120/80) 153/76 H Blood Pressure Mean (mm Hg) 101 Source Monitor Position Sitting History Since Last Visit- (Skip if this is Patient's initial visit) Left Footwear Regular Shoe Right Footwear Regular Shoe Pain Scale: 0-10 Numeric Is Patient Pain Free? Yes - Nurse 1 - General Ulcer Measurement Start: 04/04/22 10:52 Freq: Status: Active Protocol: Activity Type Activity Date Activity User E-sign Co-sign Detail Recorded Client Recorded Date Recorded By Document 04/04/22 10:53 AR [id number] 04/04/22 11:07 [place] 04/04/22 10:53 Wound Center Nurse 1 Lower Limb Edema Present Yes Left Calf (cm) 46.5 Left Ankle (cm) 30 - Nurse 2 - General Ulcer CM Notes Start: 04/04/22 10:52 Freq: Status: Active Protocol: Activity Type Activity Date Activity User E-sign Co-sign Detail Recorded Client Recorded Date Recorded By Document 04/04/22 11:11 [id number] 04/04/22 11:18 MW 04/04/22 11:11 Wound Center Nurse 2 #2 Left LE redness excoriation -Time 11:14 -Correct Patient Yes -Correct Side, Site, Position Yes -Correct Procedure Yes -Procedure Performed No -Post Debridement (cm) - Length 17.0 -Post Debridement (cm) - Width 37.0 -Post Debridement (cm) - Depth 0.1 -Total Square (Post) (cm) 629.00 Pain Scale: 0-10 Numeric Is Patient Pain Free? No WC - Nurse 3 - General Ulcer D/C NN Start: 04/04/22 10:52 Freq: Status: Active Protocol: Activity Type Activity Date Activity User E-sign Co-sign Detail Recorded Client Recorded Date Recorded By Document 04/04/22 11:23 [facility] [id number] 04/04/22 11:24 [facility] 04/04/22 11:23 Wound Care Center Nurse 3 #2 Left LE redness excoriation -Ulcer Cleansing Rinsed/ Irrigated with Saline -Foul Odor after Cleansing No -Primary Dressing Applied NonAdherent Contact Layer, Optilok 8x12 -Other Dressing XEROFORM, ADAPTIC, DRSG PER [place] SUPERVISOR [employer]ANGING -Primary Dressing Covered/Secured with Dry Gauze & Roll Gauze, Secured with Tape -Optilok 8x12 2 Left -Other PTS OWN SINGLE LAYER TUBI APPLIED Treatment Response Procedure Tolerated Well Pain Scale: 0-10 Numeric Is Patient Pain Free? Yes - Visit Discharge Discharge Condition Stable Ambulatory Status Wheelchair Transportation Private Auto Accompanied by CARON Assessment/Plan Assessment/Plan (1) Lower leg edema: CODE(S): R60.0 - Localized edema (2) Cellulitis: CODE(S): L03.90 - Cellulitis, unspecified (3) Venous insufficiency of left lower extremity: CODE(S): I87.2 - Venous insufficiency (chronic) (peripheral) PLAN: Wash left lower leg with antibacterial soap and scrub off all skin and pat dry apply Xeroform dressing with Adaptic over top Rob and double layer Tubigrip to left lower leg. Follow-up in 2 weeks Ordered venous arterial brachial studies to be done
--- NOTE | 2022-04-16 14:17 | VDLE_ITS ---
Reason For Study: Edema RIGHT LEFT CFV is compressible, spontaneous, phasic, CFV is compressible, spontaneous, phasic, competent and demonstrates normal competent, and demonstrates normal augmentation. augmentation. FV is compressible, spontaneous, phasic, FV is compressible, spontaneous, phasic, competent and demonstrates normal competent and demonstrates normal augmentation. augmentation. POP V is compressible, spontaneous, phasic, POP V is compressible, spontaneous, phasic, competent and demonstrates normal competent and demonstrates normal augmentation. augmentation. T/P Trunk is compressible. T/P Trunk is compressible. PTV is compressible. PTV is compressible. RT PerV is compressible. LT PerV is compressible. SFJ is competent and measures 0.79 x 0.83 cm. SFJ is competent and measures 0.55 x 0.50 cm. GSV proximal thigh measures 0.53 x 0.52 cm. GSV proximal thigh measures 0.65 x 0.63 cm. GSV at knee measures 0.43 x 0.40 cm. GSV at knee measures 0.53 x 0.51 cm. GSV is competent throughout. GSV is competent throughout. SSV proximal calf is competent and measures SSV proximal calf is competent and measures 0.47 x 0.47 cm. 0.40 x 0.40 cm. A non-vascularized anechoic area measuring approximately 5.30cm x 2.77cm noted in Rt popliteal fossa. Procedure Exam performed in department. The exam was diagnostic. The study was technically difficult. VL/Venous Duplex US - [place] Extrem Interpretation Summary Deep veins of the lower extremities are bilaterally patent and compressible seg mentally. There is no evidence of deep vein thrombosis on either side. Valvular competence appears in tact within the proximal deep venous systems bilaterally. The great saphenous veins appear bila terally patent and compressible segmentally. Sapheno-femoral junctions are bilaterally competent . Valvular competence appears to be intact segmentally within the great saphenous veins bilaterally. Small saphenous veins are patent and competent bilaterally. A non-vascular, anechoic structure is not ed in the right popliteal space, measuring 5.30 cm x 2.77 cm. This probably represents a poplit eal cyst. Clinical correlation is advised. Ordering Physician: Khadijah Garcias Referring Physician: Matteo Ayala Performed By: Brendon Rhoades RVT
--- NOTE | 2022-04-16 14:17 | ART_ITS ---
Reason For Study: LLE Wound Procedure A bilateral lower extremity continuous wave Doppler with analog waveform analysis,segmental pressures,and ankle brachial indexes without exercise. Left Segmental Pressures Left brachial= 130mmHg. Left posterior tibial artery = 141mmHg. Left dorsalis pedis artery = 151mmHg. The left posterior tibial artery waveforms are triphasic. The left dorsalis pedis waveforms are triphasic. Right Segmental Pressures Right brachial= 129mmHg. Right posterior tibial artery = 162mmHg. Right dorsalis pedis artery = 156mmHg. The right posterior tibial artery waveforms are triphasic. The right dorsalis pedis waveforms are triphasic. Indices The right ankle brachial index by the posterior tibial artery is 1.25. The right ankle brachial index by the dorsalis pedis is 1.20. The left ankle brachial index by the posterior tibial artery is 1.08. The left ankle brachial index by the dorsalis pedis is 1.16. VL/Lower Ext Art Exam w/o Exercis Interpretation Summary Triphasic Doppler waveforms are noted at ankle level bilaterally. Pulse-volume recordings appear satisfactory at low thigh, calf, and ankle levels bilaterally. Resting ankle-br achial indices are normal bilaterally. There is no evidence of significant arterial occlusive disease in the lower ext remities bilaterally. Ordering Physician: Khadijah Garcias Referring Physician: Matteo Ayala Performed By: Brendon Rhoades RVT
[2022-04-18 10:39] VITALS: BP 151/85; PULSE 74; RESP 16; TEMP 35.7
--- NOTE | 2022-04-18 11:20 | PN.PCM_ITS ---
History of Present Illness Date of Service: 04/18/22 Chief Complaint: Left lower leg cellulitis has restarted History of Wound: 77-year-old white female grossly obese was working in her yard over the summer and developed she thought poison andree that never went away. Actually its been infection and cellulitis. Has been on antibiotic therapy x2 and is currently on Bactrim from her family doctor through cultures. She has a crusty yellow wet looking cellulitis on the left lower leg almost circumferen tial. Bilateral lower legs are extremely edematous. Patient does not wear compression stockings. Patient denies fever chills nausea vomiting or diarrhea Progress of Wound: Today the leg is still somewhat dry but healed which she has a hard time understanding still has erythema but not as open weeping wounds. Arterial brachial study showed all within normal limits it did find a Suarez's cyst under her right popliteal area. She is to continue using Xeroform only when weeping otherwise she is to use the Tubigrip's all the time and some absorbent cream such as AmLactin cream or Eucerin or Cetaphil cream to the area. Patient is to get a lot of motion in the leg and be up walking every hour to 2 hours and not sit in the chair for any length of time. Patient may go back to swimming as much as she wants it will help dry up her leg also. Subjective Subjective After many questions answered patient was agreeable with all above and will follow-up as needed Objective Data Objective Data Patient will be discharged from the wound center and follow-up as needed Vital Signs: Vital Signs Temp Pulse Resp BP O2 Del Method 96.2 F L 74 16 151/85 H Room Air 04/18/22 10:39 04/18/22 10:39 04/18/22 10:39 04/18/22 10:39 04/04/22 10:53 Oxygen Delivery Method Room Air Lab / Micro Data Attestation: I reviewed the patient's lab results. Physical Exam Const oriented x3 General Appearance: cooperative Exam Limitations: no limitations Resp normal respiratory effort Effort and Inspection: able to speak in complete sentences Auscultation: clear to auscultation bilaterally Cardio regular rate and regular rhythm Palpation: normal PMI Rate: regular rate Rhythm: regular rhythm external exam normal Extremity normal to inspection General Extremity: normal exam except as noted Skin no rashes or lesions noted General Skin Exam: venous stasis, dermatitis and other Neuro oriented x3 Psych Appearance: grossly normal Speech: normal speech Thought Content: normal thought content Judgement: judgement good Debridement Note Debridement Note No debridement was completed: No debridement was completed today Post-Debridement Measurements and Additional Note: Post-Debridement Measurements/Treatment NIYAH - Nurse 1 - General Ulcer Assessment Start: 04/04/22 10:52 Freq: Status: Active Protocol: [email or web address] Activity Type Activity Date Activity User E-sign Co-sign Detail Recorded Client Recorded Date Recorded By Document 04/04/22 10:53 AK [id number] 04/04/22 11:07 AK Document 04/18/22 10:39 ML [id number] 04/18/22 10:49 ML 04/04/22 04/18/22 10:53 10:39 - Today's Visit Information Type of service Initial Visit Follow-up Visit (Physician/ASSEMBLY MANAGER ) Arrival Mode Wheelchair Ambulatory,Cane Arrival Mode (Other) scooter Transfer Assistance Other None Transfer Assist (Other) 2 Accompanied by caron Patient Identification Verified (Name & Yes Yes ) Patient Requires Transmission-Based No Precautions Safety Precautions NA Vital Signs Temperature (97.8 F-99.1 F) 96.4 F L 96.2 F L Temperature Source Temporal Temporal Pulse Rate (60-100) 68 74 Pulse Location Monitor Monitor Respiratory Rate (12-18) 16 16 Respiratory rate source Observation Oxygen Delivery Method Room Air Blood Pressure (90/60-120/80) 153/76 H 151/85 H Blood Pressure Mean (mm Hg) 101 107 Source Monitor Monitor Position Sitting Semi-Fowlers Blood Pressure Location Right Arm History Since Last Visit- (Skip if this is Patient's initial visit) Have you changed medications since your No last visit? Any new allergies or adverse reactions No Had a fall/change in ADL's that may No increase risk of falls Signs or symptoms of abuse and/or No neglect since last visit Have you been in the hospital since your No last visit? Has dressing in place as prescribed Yes Has compression in place as prescribed N/A Has offloadiing in place as prescribed N/A Experienced any changes in pain level or No management Left Footwear Regular Shoe Regular Shoe Right Footwear Regular Shoe Regular Shoe Pain Scale: 0-10 Numeric Is Patient Pain Free? Yes Yes - Nurse 1 - General Ulcer Measurement Start: 04/04/22 10:52 Freq: Status: Active Protocol: Activity Type Activity Date Activity User E-sign Co-sign Detail Recorded Client Recorded Date Recorded By Document 04/04/22 10:53 AK [id number] 04/04/22 11:07 AK Document 04/18/22 10:39 ML [id number] 04/18/22 10:49 ML 04/04/22 04/18/22 10:53 10:39 Wound Center Nurse 1 #2 Left LE redness excoriation -Current Size (cm) - Length 22 -Current Size (cm) - Width 38 -Current Size (cm) - Depth 0.1 -Total Square Cm 836 -Granulation Quality Red -Slough/Fibrin No -Necrosis Amt None Present (0 %) -Texture (Jessica-wound Skin Appearance) Excoriation -Moisture (Jessica-wound Skin Appearance) Assessed -Color (Jessica-wound Skin Appearance) Assessed, Erythema -Temperature (Jessica-wound Skin No Abnormality Appearance) (Pt Warm) -Tenderness on Palpation (Jessica-wound No Skin Appearance) -Ulcer Cleansing Soap and Water -Foul Odor after Cleansing No Lower Limb Edema Present Yes Left Calf (cm) 46.5 46 Left Ankle (cm) 30 29.5 - Nurse 2 - General Ulcer CM Notes Start: 04/04/22 10:52 Freq: Status: Active Protocol: Activity Type Activity Date Activity User E-sign Co-sign Detail Recorded Client Recorded Date Recorded By Document 04/04/22 11:11 MW [id number] 04/04/22 11:18 MW Document 04/18/22 10:52 MW [id number] 04/18/22 11:03 MW 04/04/22 04/18/22 11:11 10:52 Wound Center Nurse 2 #2 Left LE redness excoriation -Time 11:14 10:52 -Correct Patient Yes Yes -Correct Side, Site, Position Yes Yes -Correct Procedure Yes Yes -Procedure Performed No No -Post Debridement (cm) - Length 17.0 0 -Post Debridement (cm) - Width 37.0 0 -Post Debridement (cm) - Depth 0.1 0 -Total Square (Post) (cm) 629.00 0 -Tunneling No -Undermining/Tunneling No -Circular Undermining No -Wound/Ulcer Outcome Healed- Epithelialized -Offloading No Pain Scale: 0-10 Numeric Is Patient Pain Free? No Yes WC - Nurse 3 - General Ulcer D/C NN Start: 04/04/22 10:52 Freq: Status: Active Protocol: Activity Type Activity Date Activity User E-sign Co-sign Detail Recorded Client Recorded Date Recorded By Document 04/04/22 11:23 BMF [id number] 04/04/22 11:24 BMF Document 04/18/22 11:18 ML [id number] 04/18/22 11:19 ML 04/04/22 04/18/22 11:23 11:18 Wound Care Center Nurse 3 #2 Left LE redness excoriation -Ulcer Cleansing Rinsed/ Irrigated with Saline -Foul Odor after Cleansing No -Primary Dressing Applied NonAdherent Contact Layer, Optilok 8x12 -Other Dressing XEROFORM, ADAPTIC, DRSG PER [place] FLOOR LAYER -Primary Dressing Covered/Secured with Dry Gauze & Roll Gauze, Secured with Tape -Optilok 8x12 2 Left -Tubular Bandage Double Layer -Size of Tubigrip Used Size E -Size E ($) 2 -Other PTS OWN SINGLE LAYER TUBI APPLIED Treatment Response Procedure Tolerated Well Pain Scale: 0-10 Numeric Is Patient Pain Free? Yes Yes WC - Visit Discharge Discharge Condition Stable Ambulatory Status Wheelchair Transportation Private Auto Accompanied by CARON Assessment/Plan Assessment/Plan (1) Lower leg edema: CODE(S): R60.0 - Localized edema (2) Cellulitis: CODE(S): L03.90 - Cellulitis, unspecified (3) Venous insufficiency of left lower extremity: CODE(S): I87.2 - Venous insufficiency (chronic) (peripheral) PLAN: Continue wash left lower leg with antibacterial soap and scrub off all skin and pat dry apply absorbent cream such as AmLactin or Eucerin or Cetaphil cream Continue wearing compression stockings of the Tubigrip's. May go back to swimming And must get up every hour to and walk around the house and not be sedentary. Follow-up as needed discharge from the wound center
== END 2022-04-18 15:01 | disposition home or self-care (01) ==
LOC: WC 10:45
PROVIDERS: PCP Family Medicine; Visit Provider Nurse Practitioner
DX: L03.116 Cellulitis of left lower limb (principal); I73.9 Peripheral vascular disease, unspecified; R60.0 Localized edema; I87.2 Venous insufficiency (chronic) (peripheral)
CPT/HCPCS: 93923; 93970; 99213; G0463